=== PATIENT | female | born 1950 | race Caucasian/White ===

== ENCOUNTER 2017-04-29 00:25 | Inpatient (IN) | payer OTHER ==
[2017-04-16 13:06] LABS: URINE BILIRUBIN NEGATIVE (Negative); URINE BLOOD 1+ (Negative); URINE COLOR YELLOW; URINE GLUCOSE-RANDOM* NEGATIVE (Negative); URINE KETONES NEGATIVE (Negative); URINE LEUKOCYTES-REFLEX NEGATIVE (Negative); URINE PROTEIN (DIPSTICK) NEGATIVE (Negative); URINE SPECIFIC GRAVITY <= 1.005 (1.003-1.035); URINE UROBILINOGEN 0.2 E.U./dl (0.2-1.0)
[2017-04-16 13:06] LABS: HEMATOCRIT 34.8 % (37.0-47.0); HEMOGLOBIN 11.9 gm/dL (12.0-15.0); MCH 30.1 pg (26.0-34.0); MCHC 34.2 g/dL (28.0-37.0); RBC 3.96 mil/uL (4.20-5.00); RDW 13.5 % (10.5-14.5); WBC 4.2 thou/uL (4.0-11.0)
[2017-04-16 13:20] LABS: PROTIME 9.7 Seconds (9.3-11.4)
[2017-04-16 13:30] LABS: CASTS None Seen /LPF (None Seen); SQUAMOUS 0-3 Few /LPF (0-3)
[2017-04-16 13:31] LABS: CRYSTALS None Seen /LPF (None Seen); URINE RBC None Seen /HPF (0-2); URINE WBC-REFLEX 0-5 Rare /HPF (0-5)
[2017-04-16 13:32] LABS: ALBUMIN 3.5 g/dL (3.4-5.0); CREATININE 0.7 mg/dL (0.6-1.0); POTASSIUM 4.2 mmol/L (3.5-5.1)
[2017-04-29] VITALS (7 sets, daily range): BP systolic 81–155; BP diastolic 52–92
[~2017-04-29] VITALS: Ht 162.6 cm; Wt 72.1 kg
--- NOTE | ~2017-04-29 | O ---
[facility] [place] [address] OPERATIVE REPORT Name: WINSTON BREWER Room #: 402-P ADM IN M.R.#: [id number] Admission: 04/29/17 Attend Phys: Dave Henderson MD Discharge: Date of : 46 Report #: [id number] THIS REPORT FOR: //name// CC: ASHLEY Henderson DATE OF SERVICE: 04/29/2017 PREOPERATIVE DIAGNOSIS: Right knee degenerative joint disease, severe. POSTOPERATIVE DIAGNOSIS: Right knee degenerative joint disease, severe. PROCEDURE: Right total knee arthroplasty. SURGEON: Dave Moncada MD TEACHING DIETITIAN: LIAM Ashford INDICATIONS FOR TEACHING DIETITIAN: During the course of operation, extensive manipulation, retraction and limb positioning was required. This was afforded to me by my restaurant assistant manager. ANESTHESIA: Spinal. INDICATIONS: See hospital H and P. IMPLANTS UTILIZED: Used a [employer] knee, used a size 5 press-fit cruciate-retaining femoral component, used a size 3 tibial tray with an 11 mm insert and we used a 29 mm round ____ peg patella. DESCRIPTION OF PROCEDURE: After adequate general anesthesia had been obtained, the patient's right lower extremity was prepped and draped in the usual meticulous sterile fashion. Limb was exsanguinated with gravity, tourniquet inflated to 300 torr. Anterior midline incision was made subQ, divided sharply. Hemostasis obtained with electrocautery. Medial parapatellar incision was made. Infrapatellar fat pad excised. Medial release performed. The drill was used to drill the distal femur. This was enlarged, irrigated and suctioned, and the intramedullary guide placed the full length of the femur. We placed the distal femoral cutting guide in the appropriate rotation, pinned it into position and the distal femoral cut was made. Measuring device determined the size 5 as appropriate size for this patient. We then marked the distal femur, impacted the cutting guide into position and the anterior, posterior and chamfer cuts were made. Rongeur was used to remove additional osteophytes. At this time, the ACL was transected, tibia translated anteriorly and menisci [facility] [address] [place] [address] OPERATIVE REPORT Name: WINSTON BREWER Room #: 402-P ADM IN M.R.#: [id number] Admission: 04/29/17 Attend Phys: Dave Henderson MD Discharge: Date of : 46 Report #: [id number] were excised. The drill was used to drill central portion of the tibia. This hole was enlarged, irrigated, suctioned, and the intramedullary guide placed the full length of the tibia. Proximal tibial cutting guide placed at appropriate height, proximal tibia cut was made. #3 tray gave us the best coverage on the tibia. The components were put in position with 11 spacer, she had the best flexion and extension gap. Patella tracked normally. Patella was then measured, it was quite thin. We cut it such that we would have 12 mm of residual patella to lessen the likelihood of fracture. After the patellar cut was made, the drill guide was put in position, the 29 gave us the best coverage. Pedicles were drilled, trial component put in position, it tracked normally. At this time, the distal femur was punched, tibial tray rotation marked, tibial keel cuts were made. The cement was vacuum mixed and when it reached the appropriate consistency the knee was thoroughly dried, the tibial tray was cemented in place, excess cement was removed. The polyethylene was impacted into place and the femur was impacted in place and the knee was taken out to 30 degrees of flexion with uniform compression placed across components. Patellar button was then cemented into place and again excess cement was removed. At this time, irrigation was placed in the wound and allowed to rest in the wound until the cement fully cured. When it had done so, the knee was irrigated, dried and inspected. Drains were placed superolaterally, both deep and superficial. The retinacular layer closed with combination of interrupted [id number] #1 Vicryl as well as running #1 Tevdek. SubQ closed with 2-0 Monocryl. Skin closed with nargis. Sterile compressive dressing was complied. Tourniquet deflated. <ELECTRONICALLY SIGNED> By: Dave Henderson MD 04/29/17 [id number] [id number] Dave Henderson MD /nt
[~2017-04-29 00:25] MED LIST: AMITRIPTYLINE H10 M1 PO; ASPIR 8181 MG PO; BENADRYL25 MG PO; BIOTIN10000 MC1 PO; BISACODYL10 MG RC; CELEXA40 MG PO; DONNATAL TABL16.2 MG PO; ESSENTIAL DAIL1 EACH PO; ESTRACE2 M3 PO; FLEXERIL PO; FLONASE 0.05%50 MCG NASAL; GABAPENTIN 100100 MG PO; HYDROCODONE-AP1 EAC6 PO; IRON325 PO; KRILL OIL 5001 EACH PO; LOVASTATIN 20 M20 MG PO; MIRALAX17 GM PO; MUCINEX600 MG PO; OMEGA-31000 M1 PO; OMEPRAZOLE 20 M20 MG PO; ONDANSETRON HCL4 M2; ONDANSETRON HCL4 M2 PO; PAXIL10 MG; PERCOCET 10-321 EACH PO; POTASSIUM GLUC500 MG PO; PROBIOTIC1 EAC1 PO; SALINE NASAL M126 ML NASAL; SULINDAC 200MG200 M1 PO; SULINDAC PO; SYSTANE 0.3-0.1 EACH OPHTHALMIC; TRAMADOL 50 MG50 MG PO; TYLENOL EXTRA500 MG PO; TYLENOL325 MG PO; VITAMIN D1000 UNI1 PO; VITAMIN D10000 UNIT PO; XARELTO10 MG PO
[2017-04-30] VITALS: BP 123/61
[2017-04-30 04:00] VITALS: BP 110/59; BP 141/58
[2017-04-30 06:11] LABS: HEMATOCRIT 29.4 % (37.0-47.0); HEMOGLOBIN 9.9 gm/dL (12.0-15.0); MCH 30.1 pg (26.0-34.0); MCHC 33.9 g/dL (28.0-37.0); RBC 3.3 mil/uL (4.20-5.00); RDW 13.3 % (10.5-14.5); WBC 9.1 thou/uL (4.0-11.0)
[2017-04-30 08:00] VITALS: BP 127/47
[2017-04-30 12:00] VITALS: BP 149/60
[2017-04-30 16:00] VITALS: BP 144/65
[2017-04-30 20:00] VITALS: BP 137/50
[2017-04-30 23:02] LABS: URINE BILIRUBIN NEGATIVE (Negative); URINE BLOOD 3+ (Negative); URINE COLOR YELLOW; URINE GLUCOSE-RANDOM* NEGATIVE (Negative); URINE KETONES NEGATIVE (Negative); URINE LEUKOCYTES-REFLEX NEGATIVE (Negative); URINE PROTEIN (DIPSTICK) NEGATIVE (Negative); URINE SPECIFIC GRAVITY 1.025 (1.003-1.035); URINE UROBILINOGEN 0.2 E.U./dl (0.2-1.0)
[2017-04-30 23:41] LABS: URINE WBC-REFLEX 0-5 Rare /HPF (0-5)
[2017-04-30 23:42] LABS: CASTS None Seen /LPF (None Seen); CRYSTALS None Seen /LPF (None Seen); SQUAMOUS None Seen /LPF (0-3); URINE RBC 0-2 Rare /HPF (0-2)
[2017-05-01 04:00] VITALS: BP 140/57
[2017-05-01 06:30] LABS: HEMATOCRIT 29.4 % (37.0-47.0); HEMOGLOBIN 9.9 gm/dL (12.0-15.0); MCHC 33.7 g/dL (28.0-37.0); RBC 3.3 mil/uL (4.20-5.00); RDW 13.4 % (10.5-14.5); WBC 8.8 thou/uL (4.0-11.0)
[2017-05-01] MEDS ORDERED: TRAMADOL 50 MG50 MG PO (06:56)
[2017-05-01] MEDS ORDERED: XARELTO10 MG PO (06:56)
[2017-05-01] MEDS ORDERED: DILAUDID1 MG/1 ML PO (06:56)
[2017-05-01 07:50] VITALS: BP 144/53
[2017-05-01 16:45] VITALS: BP 161/52
[2017-05-01 19:47] VITALS: BP 144/53
[2017-05-02] VITALS (7 sets, daily range): BP systolic 127–150; BP diastolic 55–63
[2017-05-02 04:56] LABS: HEMATOCRIT 25.2 % (37.0-47.0); HEMOGLOBIN 8.5 gm/dL (12.0-15.0); MCH 29.6 pg (26.0-34.0); MCHC 33.7 g/dL (28.0-37.0); MCV 87.8 fL (80.0-100.0); RBC 2.87 mil/uL (4.20-5.00); RDW 13.4 % (10.5-14.5); WBC 7.7 thou/uL (4.0-11.0)
[2017-05-02] MEDS ORDERED: IRON325 PO (07:29)
[2017-05-03 02:51] VITALS: BP 137/69
[2017-05-03 03:46] LABS: HEMOGLOBIN 8.3 gm/dL (12.0-15.0); MCH 29.6 pg (26.0-34.0); MCHC 33.2 g/dL (28.0-37.0); MCV 89.3 fL (80.0-100.0); RBC 2.8 mil/uL (4.20-5.00); RDW 13.5 % (10.5-14.5); WBC 6.9 thou/uL (4.0-11.0)
[2017-05-03 06:55] VITALS: BP 115/57
[2017-05-03] MEDS ORDERED: ASPIR-TRIN325 MG PO (10:37)
== END 2017-05-03 14:57 | disposition home health service (06) | DRG 470 ==
LOC: PRE 00:25 → 4N 05:19 → TBA 05:19 → PRE 07:43 → 4N 10:18 → PRE 12:31 → 4N 05-03 14:57
PROVIDERS: Orthopaedic Surgery; Physician Assistant; Student in an Organized Health Care Education/Training Program
PROC: 0SRC0JA Replacement of Right Knee Joint with Synthetic Substitute, Uncemented, Open Approach (ICD-10-PCS; principal; 2017-04-29)
DX: M17.11 Unilateral primary osteoarthritis, right knee (principal); D62 Acute posthemorrhagic anemia; E78.5 Hyperlipidemia, unspecified; K58.9 Irritable bowel syndrome, unspecified; F41.9 Anxiety disorder, unspecified; R33.9 Retention of urine, unspecified; Z91.048 Other nonmedicinal substance allergy status; Z79.51 Long term (current) use of inhaled steroids; Z79.82 Long term (current) use of aspirin; Z79.899 Other long term (current) drug therapy; Z88.1 Allergy status to other antibiotic agents; Z88.5 Allergy status to narcotic agent; Z88.2 Allergy status to sulfonamides; Z88.8 Allergy status to other drugs, medicaments and biological substances; Z90.710 Acquired absence of both cervix and uterus; Z90.79 Acquired absence of other genital organ(s); Z90.722 Acquired absence of ovaries, bilateral; Z28.21 Immunization not carried out because of patient refusal
CPT/HCPCS: 10790; 50010; 50101; 50415; 50954; 51130; 51225; 51320; 51412; 51771; 52001; 53000; 53078; 53364; 56525; 56527; 62110; 62850; 64042; 64043; 65085; 70005